=== PATIENT | male | born 1975 | race Caucasian/White ===

== ENCOUNTER 2019-09-01 23:31 | Emergency (ER) | payer SELFPAY ==
[~2019-09-01] VITALS: Ht 165.1 cm; Wt 68.0 kg
[2019-09-01 23:50] VITALS: BP 134/64
== END 2019-09-02 07:14 | disposition left against medical advice (07) ==
LOC: ER 23:31
DX: Z53.21 Procedure and treatment not carried out due to patient leaving prior to being seen by health care provider (principal); R07.9 Chest pain, unspecified; R11.2 Nausea with vomiting, unspecified
CPT/HCPCS: 93005